=== PATIENT | female | born 1955 | race Caucasian/White ===

== ENCOUNTER 2024-09-25 09:32 | Emergency (ER) | payer OTHER ==
[~2024-09-25] VITALS: Ht 165.1 cm; Wt 73.0 kg
[2024-09-25 09:38] VITALS: O2SAT 98
[2024-09-25] MEDS: IBUPROFEN 600MG TABLET PO ONE (10:55)
[2024-09-25] MEDS ORDERED: IBUP-2029 MT (11:57)
[2024-09-25] MEDS ORDERED: LIDO700A30 TP (11:57)
[2024-09-25 12:05] VITALS: BP 160/79; PULSE 78; RESP 18; TEMP 36.2; O2SAT 100
== END 2024-09-25 12:06 | disposition home or self-care (01) ==
LOC: ER 09:32
DX: S00.83XA Contusion of other part of head, initial encounter (principal); M25.512 Pain in left shoulder; M54.2 Cervicalgia; E11.9 Type 2 diabetes mellitus without complications; I10 Essential (primary) hypertension; Z79.899 Other long term (current) drug therapy; Z88.1 Allergy status to other antibiotic agents; V49.9XXA Car occupant (driver) (passenger) injured in unspecified traffic accident, initial encounter; Y92.410 Unspecified street and highway as the place of occurrence of the external cause; Y93.89 Activity, other specified; Y99.8 Other external cause status
CPT/HCPCS: 73030; 73560; 99284